=== PATIENT | female | born 1960 | race Caucasian/White ===

== ENCOUNTER → 2016-11-25 | Outpatient (CLI) | payer OTHER ==
--- NOTE | 2016-11-26 11:58 | MM ---
Reason for exam: screening (asymptomatic). Last mammogram was performed 10 years and 6 months ago. History: Patient is postmenopausal and is nulliparous. Family history of premenopausal breast cancer in mother. Physical Findings: A clinical breast exam by your physician is recommended on an annual basis and results should be correlated with mammographic findings. MG 3D Screening Mammo W/Cad Bilateral CC and MLO view(s) were taken. Prior study comparison: July 03, 2011, mammogram. The breast tissue is heterogeneously dense. This may lower the sensitivity of mammography. No significant changes when compared with prior studies. ASSESSMENT: Negative, BI-RAD 1 RECOMMENDATION: Routine screening mammogram of both breasts in 1 year.
== END | disposition home or self-care (01) ==
LOC: RADMAMWWP 13:33
PROVIDERS: ATTEND Family Medicine
DX: Z12.31 Encounter for screening mammogram for malignant neoplasm of breast (principal)
CPT/HCPCS: 77063; G0202

== ENCOUNTER → 2018-01-05 | Outpatient (CLI) | payer OTHER ==
--- NOTE | 2018-01-05 13:54 | MM ---
Reason for exam: screening (asymptomatic). Last mammogram was performed 1 year and 1 month ago. History: Patient is postmenopausal and is nulliparous. Family history of premenopausal breast cancer in mother. Physical Findings: A clinical breast exam by your physician is recommended on an annual basis and results should be correlated with mammographic findings. MG 3D Screening Mammo W/Cad Bilateral CC and MLO view(s) were taken. Prior study comparison: November 25, 2016, bilateral MG 3d screening mammo w/cad. July 03, 2011, mammogram. The breast tissue is heterogeneously dense. This may lower the sensitivity of mammography. There is no discrete abnormality. ASSESSMENT: Negative, BI-RAD 1 RECOMMENDATION: Routine screening mammogram of both breasts in 1 year.
== END | disposition home or self-care (01) ==
LOC: RADMAMWWP 10:12
DX: Z12.31 Encounter for screening mammogram for malignant neoplasm of breast (principal)
CPT/HCPCS: 77063; 77067

== ENCOUNTER → 2018-01-21 | Outpatient (CLI) | payer OTHER ==
--- NOTE | 2018-01-22 08:07 | MR ---
EXAMINATION TYPE: MR abdomen wo/w con DATE OF EXAM: 01/21/2018 COMPARISON: Outside CT abdomen and pelvis report January 13, 2018. HISTORY: rectal ca. Abnormal CT, liver lesion. CONTRAST: Standard multiplanar, multisequence MRI departmental protocol utilizing 5.5 mL intravenous Gadavist g adolinium contrast. FINDINGS: LIVER: Liver is overall upper limits of normal in size. In the caudate lobe there is lobulated thin-w alled cyst with few tiny thin-walled septa measuring 2.8 x 2.4 x 2.0 cm craniocaudal dimension on axi al image 26 and coronal image [address] report. There is additional subcentimete r simple appearing thin-walled cyst anterior to this in the deep left hepatic lobe axial image 25. In the periphery of the right hepatic lobe there is T1 hypointense and T2 hyperintense lesion measuri ng 1.0 x 0.8 cm axial image 69 series 304. Dynamic postcontrast images show rim enhancement with some slightly progressive heterogeneous central filling on delayed images, imaging characteristics favor benign hemangioma. Exam is noted suboptimal as first postcontrast or dedicated hepatic arterial phas e shows contrast enhancement in the portal vein. This would make metastatic disease difficult to enti rely exclude as there may have been enhancement with washout. Gallbladder felt within normal limits. No suspicious intrahepatic or extrahepatic biliary dilatation is seen. OTHER: Lung bases are grossly clear. Debris filled stomach suggest recent meal ingestion. The spleen, pancreas, and both adrenal glands are normal in size. There is no concerning renal mass or hydroneph rosis seen bilaterally. There is no suspicious small or large bowel dilatation. Patient has very marilin le intra-abdominal fat making evaluation of bowel is somewhat suboptimal. There is suspected moderate to advanced disc space narrowing with endplate changes at L4-L5 level seen best coronal image 21. No concerning abdominal fluid collection is seen. No definitive abdominal adenopathy is seen. IMPRESSION: Lesion of concern on CT favors benign hemangioma on MRI, but cannot exclude early metastatic focus. Advise short-term liver protocol contrast-enhanced MRI in 6 months time to reassess.
== END | disposition home or self-care (01) ==
LOC: RADMRIMAIN 10:29
PROVIDERS: ATTEND Internal Medicine Hematology & Oncology
DX: K76.9 Liver disease, unspecified (principal); C20 Malignant neoplasm of rectum
CPT/HCPCS: 74183; A9581

== ENCOUNTER → 2018-01-27 | Outpatient (CLI) | payer OTHER ==
--- NOTE | 2018-02-03 16:16 | MR ---
EXAMINATION TYPE: MR pelvis wo/w con DATE OF EXAM: 01/30/2018 COMPARISON: MR abdomen dated 01/21/2018 HISTORY: Rectal CA CONTRAST: Standard multiplanar, multisequence MRI departmental protocol utilizing 5.5 mL intravenous Gadavist g adolinium contrast. FINDINGS: Imaging is somewhat limited secondary to patient motion. Originating approximately 4.5 to 5 cm from the anal verge there is an ulcerated rectal mass extending proximally 5 cm in craniocaudal dimension on T2 sagittal fat-sat image 21. This has an annular appea cuate with luminal narrowing. There is eccentric thickening measuring up to 1.3 cm. Along the right l ateral margin on small [id number] T2 nonfat sat axial image 22 there is ill-definition of the musc ularis propria, typically T2 hypointense but is also seen on image 23 with haziness extending into th e mesorectal fat suspicious for invasion. There is avid and enhancement of this rectal neoplasm. There is no evidence of invasion anteriorly into the peritoneal reflection or uterus. No apparent inv asion into the urinary bladder. No presacral soft tissue mass. Within the mesorectal lymphatic chain in the right lateral mesorectal fat on T1 nonfat sat axial imag e 14 there is a prominent 5 mm lymph node, suspicious. Other nonenlarged multiple lymph nodes are see n contained within the mesorectal fat. No bone marrow replacing process is appreciated within the pelvis. Bowel is suboptimally evaluated bu t does not appear grossly dilated. No superficial inguinal adenopathy. Mild bilateral femoral acetabu lar arthropathy is seen with mild multilevel degenerative changes of the lumbar spine and disc bulges at L3-4, L4-L5 and L5-S1. IMPRESSION: Although imaging is slightly suboptimal due to patient motion the following observations are made. 1. The primary ulcerated rectal carcinoma is seen approximately 4.5-5 cm from the anal verge creating luminal narrowing without obstruction. Findings suggest right lateral invasion into the muscularis p ropria and extent through into the mesorectal fat with suspicious 5 mm right mesorectal lymph node. 2. No evidence for direct invasion into the uterus, urinary bladder or abnormal presacral soft tissue density. No suspicious bone marrow replacing process to suggest osseous metastasis within the visual ized pelvis.
== END | disposition home or self-care (01) ==
LOC: RADMRIMAIN 12:04
PROVIDERS: ATTEND Internal Medicine Hematology & Oncology
DX: C20 Malignant neoplasm of rectum (principal)
CPT/HCPCS: 72197; A9585

== ENCOUNTER → 2018-02-14 | Outpatient (CLI) | payer OTHER ==
--- NOTE | 2018-02-16 13:57 | PE ---
Nuclear medicine PET/CT HISTORY: Rectal carcinoma, initial Patient received 14.2 mCi F-18 FDG intravenously in delayed scanning was performed from the skull bas e to the mid thighs. Localization and attenuation correction CT scan was performed. Correlation to CT abdomen pelvis 01/13/2018 Neck and chest: There is a port in the right pectoral region, central venous catheter extends via rig ht subclavian approach shows the distal tip within the superior vena cava. There are coronary artery calcifications present. No evident mediastinal, axillary, or hilar adenopathy. No supraclavicular samaria nopathy. Emphysematous changes are present within the lungs, there is no evident lung mass. No suspic ious hypermetabolic uptake. Extensive symmetric uptake along the posterior neck, supraclavicular berhane ons, hypermetabolic uptake within the superior mediastinum and also symmetric uptake along the costov ertebral angles of the ribs may be related to brown fat. ABDOMEN: A focal lesion within the lateral aspect of the right lobe of the liver shows hypermetabolic uptake corresponding to an SUV 5.3. No retroperitoneal adenopathy. Liver cyst is present as photopen ic. Hypermetabolic uptake is associated with the patient's rectal carcinoma, SUV is 17-18. Osseous structures show degenerative disc changes in the lower spine with bilateral spondylolysis at L5. Uptake as described costovertebral angles thought to be between transverse processes. IMPRESSION: Findings suggestive of metastatic focus to the liver. Remainder of areas of hypermetaboli c uptake felt likely to be related to brown fat which could be assessed on follow-up.
== END | disposition home or self-care (01) ==
LOC: RADPETMAIN 10:24
PROVIDERS: ATTEND Internal Medicine Hematology & Oncology
DX: C20 Malignant neoplasm of rectum (principal)
CPT/HCPCS: 78815; A9552

== ENCOUNTER → 2018-04-22 | Outpatient (CLI) | payer OTHER ==
[2018-04-22 10:49] LABS: Blood Urea Nitrogen 21 mg/dL (7-17)
--- NOTE | 2018-04-22 13:04 | CT ---
EXAMINATION TYPE: CT abdomen pelvis w con DATE OF EXAM: 04/22/2018 HISTORY: Malignant neoplasm of rectum. Interval treatment with chemotherapy. CT DLP: 342.3mGycm Automated Exposure Control for Dose Reduction was Utilized. CONTRAST: CT scan of the abdomen and pelvis is performed with IV Contrast, patient injected with 100 mL of Isov ue 300. COMPARISON: Outside CT abdomen pelvis January 13, 2018. PET/CT February 14, 2018 FINDINGS: LUNG BASES: No significant abnormality is appreciated. LIVER/GB: Metastatic focus lateral right hepatic lobe is diminished in size now measuring roughly 6 m m axial image 23 series 3. No definitive new intrahepatic lesions are seen. Stable thin-walled 2.8 cm cyst deeper in the right hepatic lobe axial image 17 PANCREAS: No significant abnormality is seen. SPLEEN: No significant abnormality is seen. ADRENALS: No significant abnormality is seen. KIDNEYS: No significant abnormality is seen. BOWEL: The oral contrast reaches level of proximal transverse colon. Evaluation of distal bowel is mcallister boptimal. Evaluation overall is suboptimal as patient has little intra-abdominal fat. There is no slick picious small or large bowel dilatation seen. There is mild wall thickening in the mid to distal sigm oid colon. More suspicious eccentric moderate to severe wall thickening near sigmoid rectal junction prior study axial image 60 correlating with PET axial image 196 is significantly improved, some mild to moderate eccentric wall thickening remains present seen best axial images 64 and 65 on today's joss dy. UTERUS/ADNEXA: Retroverted uterus is redemonstrated. Scattered pelvic phleboliths are redemonstrated. LYMPH NODES: No greater than 1cm abdominal or pelvic lymph nodes are appreciated. OSSEOUS STRUCTURES: Advanced disc space narrowing with endplate sclerosis L4-L5 level is redemonstrat ed. Partially sacralized right L5 segment. There is advanced narrowing with spurring and sclerosis le ft L2-L3 level redemonstrated. OTHER: No significant additional abnormality is seen. IMPRESSION: Interval improvement in appearance of primary rectal neoplasm and single hepatic metastat ic lesion. No new suspicious masses or adenopathy is clearly identified.
== END | disposition home or self-care (01) ==
LOC: RADPROMAIN 10:00
PROVIDERS: ATTEND Internal Medicine Hematology & Oncology
DX: C78.7 Secondary malignant neoplasm of liver and intrahepatic bile duct (principal); C20 Malignant neoplasm of rectum
CPT/HCPCS: 82565; 84520; 74177; J1642; Q9967

== ENCOUNTER → 2018-07-15 | Outpatient (CLI) | payer OTHER ==
--- NOTE | 2018-07-15 08:42 | MR ---
EXAMINATION TYPE: MR liver wo/w con DATE OF EXAM: 07/15/2018 COMPARISON: PET/CT February 14, 2018. CT abdomen and pelvis April 22, 2018. HISTORY: Rectal cancer. On chemotherapy from February 2018 through April 2018 CONTRAST: Standard multiplanar, multisequence MRI departmental protocol utilizing 5.5 mL intravenous Gadavist g adolinium contrast. FINDINGS: Liver: Lateral aspect right hepatic lobe lesion best seen on PET/CT is not clearly identified on toda y's MRI study. There is subtle area of capsular retraction axial image 311 series 901 measuring rough ly 3 mm likely reflecting treated neoplasm. There is redemonstration of lobulated thin-walled cyst ce ntrally measuring 2.9 x 2.8 cm axial image 25 series 501. There are a few additional subcentimeter si mple appearing thin-walled cysts anterior to this just anterior to the portal vein for reference axia l images 24 and 25 without enhancement. No new solid masses are evident to suggest new metastatic mal ignancy. Gallbladder remains within normal limits. No biliary dilatation is noted. Other: Lung bases remain clear. The liver and both adrenal glands as well as pancreas remain normal in size. No suspicious new renal lesions are seen. No bowel dilatation is noted. No concerning abdomi nal fluid collection is seen. Osseous structures show endplate changes and disc space narrowing as we ll as spurring most prominent in lower lumbar levels. Patient is noted to have little intra-abdominal fat. IMPRESSION: Known hepatic metastatic lesion right lobe laterally from PET/CT not clearly identified o n today's MRI. No new suspicious solid hepatic lesions present.
== END ==
LOC: RADMRIMAIN 06:45
PROVIDERS: ATTEND Internal Medicine Hematology & Oncology
DX: C20 Malignant neoplasm of rectum (principal)
CPT/HCPCS: 74183

== ENCOUNTER → 2019-01-07 | Outpatient (CLI) | payer OTHER ==
--- NOTE | 2019-01-07 15:52 | MR ---
MR abdomen with and without contrast HISTORY: Rectal cancer Multiplanar multisequence and postcontrast images through the abdomen following 4.5 cc Gadavist IV Correlation to prior MR liver 07/15/2018, nuclear medicine PET/CT 02/14/2018 Interval development of right lobe hepatic focus showing increased T2-weighted signal, intermediate s ignal on T1-weighted images, low signal centrally on postcontrast images with peripheral enhancement. The focus measures approximately 4.3 cm in greatest AP dimension. The signal abnormality has develop ed in the region of the previously identified abnormal focus on patient's nuclear medicine PET/CT. No additional abnormal foci of enhancement within the liver. The multilocular cystic focus within the r ight lobe of the liver is stable and measures approximately 3 cm in greatest dimension. Immediately a nterior to the left lobe of the liver inferiorly there is a focus of abnormal enhancement following c ontrast administration within the subcutaneous fat extending to the skin and through the abdominal wa ll towards the surface the anterior margin of the liver which is irregular. This was not seen on prio r liver MRI or on PET/CT. The lung bases are clear. Abdominal aorta shows normal caliber. No evident retroperitoneal adenopathy . Pancreas, adrenal glands, kidneys, spleen, gallbladder are unremarkable. Paucity of intra-abdominal fat again noted. No bowel dilation evident. No ascites. IMPRESSION: Recurrence of hepatic metastatic focus within the right lobe of the liver, indeterminate abnormal signal anterior to the left lobe of the liver as described, correlate for any procedure at t his level.
== END | disposition home or self-care (01) ==
LOC: RADMRIMAIN 09:07
PROVIDERS: ATTEND Internal Medicine Hematology & Oncology
DX: C78.7 Secondary malignant neoplasm of liver and intrahepatic bile duct (principal); C20 Malignant neoplasm of rectum
CPT/HCPCS: 74183; A9585

== ENCOUNTER → 2020-01-21 | Outpatient (CLI) | payer OTHER ==
--- NOTE | 2020-01-21 19:01 | CT ---
EXAMINATION TYPE: CT abdomen pelvis w con DATE OF EXAM: 01/21/2020 COMPARISON: CT abdomen pelvis 04/22/2018. MRI abdomen 01/07/2019. MRI liver 07/15/2018. HISTORY: History of rectal cancer. Stool coming out vagina. CT DLP: 345 mGycm Automated exposure control for dose reduction was used. TECHNIQUE: Helical acquisition of images was performed from the lung bases through the pelvis. CONTRAST: Performed with rectal contrast, without Oral Contrast, and with IV Contrast, patient injected with 10 0 mL of Isovue M300 intravenously. FINDINGS: LUNG BASES: Normal. LIVER: Patient is status post partial right hepatectomy. The remaining liver demonstrates numerous ne w hypodense metastases. Largest lesion measure up to 1.9 x 1.5 cm in segment IVb (3:20) and 1.7 x 2.2 cm in segment 3 (3:16). BILIARY SYSTEM: Status post cholecystectomy. No intrahepatic or extrahepatic biliary ductal dilatatio n. PANCREAS: Normal. SPLEEN: Normal. ADRENALS: Normal. KIDNEYS: Normal. BOWEL: Rectal tube in place. Rectal contrast is seen to the level of the proximal transverse colon. There is also significant filling of the vagina with the rectal contrast. 2 mm linear sinus tract is seen extending approximately 2.0 cm from the anorectal junction, extending anteriorly from the lower rectum 10-11 o'clock towards the junction of the lower third and middle third of the posterior vagina (6:35). This tract is not seen definitively communicating with the posterior vagina. There is a anot her very thin 1 mm fistulous tract 2.7 cm from the anorectal junction from the anterior lower rectum at 12:00 extending to the posterior left mid vagina (8:99, 6:38). There is a large 8mm defect of the anorectal junction 11-1 o'clock with stool and contrast seen extending towards the posterior lower va bayron (6:37, 8:111). There is thickening of the lower rectum and vagina. No discrete mass is seen. No evidence of bowel obstruction. Postsurgical anastomosis of the right colon. PERITONEUM: No free air is visualized. No free fluid. ADENOPATHY: No lymphadenopathy. PELVIS: Circumferentially mildly prominent wall of the urinary bladder. Vaginal findings as described above in the bowel section. The uterus is retroverted and otherwise unremarkable. VASCULATURE: No abdominal aortic aneurysm. Moderate calcified atherosclerotic disease. MUSCULOSKELETAL: New sclerotic bone lesion of the right sacrum at the sacroiliac joint (8:74). Degen erative changes of the spine. Grade 1 anterolisthesis L5 on S1 with bilateral L5 pars defects. IMPRESSION: 1. Numerous new hepatic metastatic lesions. 2. The vagina is filled with rectal contrast. There is a large 9 mm anterior anorectal defect and fis tulous tract with stool and contrast extending to the lower vagina. There is a thin 1 mm lower rectal fistulous track extending to the left mid vagina. There is a 2 mm sinus tract from the lower rectum towards the vagina, without definitive fistulous formation. 3. New sclerotic bony lesion of the right sacrum concerning for new metastatic disease.
== END | disposition home or self-care (01) ==
LOC: RADPROMAIN 13:34
PROVIDERS: ATTEND Internal Medicine Hematology & Oncology
DX: C78.7 Secondary malignant neoplasm of liver and intrahepatic bile duct (principal); C20 Malignant neoplasm of rectum; N82.3 Fistula of vagina to large intestine
CPT/HCPCS: 74177; J1642; Q9967 ×2

== ENCOUNTER → 2020-04-27 | Outpatient (CLI) | payer OTHER ==
--- NOTE | 2020-04-27 16:40 | CT ---
EXAMINATION TYPE: CT ChestAbdPelvis w con DATE OF EXAM: 04/27/2020 COMPARISON: 01/21/[address] 02/14/2018 HISTORY: 59-year-old female with C20, rectal cancer, Abdominal pain, hx of colostomy TECHNIQUE: Contiguous axial scanning of the chest, abdomen, and pelvis performed with IV Contrast, pa tient injected with 80 mL of Isovue 300. Delayed images through the kidneys were obtained. Coronal/sa gittal reconstructions performed. CT DLP: 472 mGycm Automated exposure control for dose reduction was used. FINDINGS: CHEST: Heart normal size without pericardial effusion. LAD and RCA coronary artery calcifications are presen t. Aorta normal caliber with conventional arch vessel branching anatomy. Left anterior chest wall injection port with catheter tip in the right atrium. A new round nodule measuring 9 mm at the right infrahilar lung, axial image 27. Otherwise, no thoraci c lymphadenopathy identified. There is moderate centrilobular emphysema. Numerous new pulmonary nodules are present, mostly 8 mm and smaller. Dominant 1.6 cm anterior right lower lobe pulmonary nodule is present on axial image 34. No consolidation or pleural effusion. ABDOMEN: Right hepatectomy changes are redemonstrated. There is interval enlargement of multiple hypervascular liver masses. In the lateral left lobe, previously lesions are now conglomerate measuring up to 8.4 x 4.4 cm. In the dome, lesion measures 4.1 cm versus 1.8 cm, previously. More inferiorly, lesion sayra ures 5.0 cm versus 1.9 cm, previously. Segment 3 left liver lobe measures 5.2 cm versus 2 separate le sions measuring up to 1.5 cm each, previously. No biliary ductal dilatation. Portal venous system appears patent. Gallbladder surgically absent. Adrenal glands, spleen, and pancreas show no gross abnormality. Kidney s show no gross abnormal body. No dilated small bowel or free air. There is a left midabdominal colostomy seems to be at the level of the splenic flexure of the colon. Oral contrast material extends into the ostomy. Along the left anterior mid abdominal omentum, there is some 1.2 cm soft tissue nodularity. No mesenteric or retroperitoneal lymphadenopathy identified. PELVIS: Bladder urine distended. Uterus is visualized. Ovaries not well delineated from adjacent bowel loops. There seems to be mild cul-de-sac fluid. Distal rectal resection. BONES: Redemonstrated subtle sclerosis right sacral ala, stable from 01/21/2020 but new from studies prior to that. Findings may reflect subtle osseous metastatic disease. No osseous lytic destructive process i s identified. IMPRESSION: 1. Ingested oral contrast extends to the patient's left mid abdominal colostomy. 2. Disease progression with numerous new metastatic pulmonary nodules largest measuring 1.6 cm. New 9 mm right hilar metastatic lymph node. 3. Enlarging hypovascular hepatic metastases measuring up to 8.4 cm now. Previous right hepatectomy. 4. A new 1.2 cm nodule in the anterior mid abdominal omentum could represent a metastatic soft tissue deposit. 5. Redemonstrated sclerosis within the right sacral ala which is new from exams prior to 01/21/2020. S agittal osseous metastatic disease not excluded.
== END | disposition home or self-care (01) ==
LOC: RADCTMAIN 13:01
PROVIDERS: ATTEND Internal Medicine Hematology & Oncology
DX: Z03.89 Encounter for observation for other suspected diseases and conditions ruled out (principal); C78.00 Secondary malignant neoplasm of unspecified lung; C77.1 Secondary and unspecified malignant neoplasm of intrathoracic lymph nodes; C78.7 Secondary malignant neoplasm of liver and intrahepatic bile duct; K66.8 Other specified disorders of peritoneum; M89.8X8 Other specified disorders of bone, other site; Z90.49 Acquired absence of other specified parts of digestive tract; Z93.3 Colostomy status
CPT/HCPCS: 71260; 74177; J1642; Q9967